=== PATIENT | female | born 2000 | race American Indian/Alaskan Native ===

== ENCOUNTER 2024-07-13 19:31 | Emergency (ER) | payer MEDICAID ==
[2024-07-13 20:23] LABS: BASOPHILS ABSOLUTE AUTO 0.07 10^3/uL (0.00-0.50); BASOPHILS PERCENT AUTO 0.9 % (0-1); EOSINOPHILS ABSOLUTE AUTO 0.07 10^3/uL (0.00-1.50); EOSINOPHILS PERCENT AUTO 0.9 % (0-6); HEMATOCRIT 35.2 % (37.0-47.0); HEMOGLOBIN 11.5 g/dL (12.0-16.0); IMMATURE GRAN ABSOLUTE AUTO 0.01 10^3/uL (0.00-0.49); IMMATURE GRAN PERCENT AUTO 0.1 % (0.0-4.9); LYMPHOCYTES ABSOLUTE AUTO 1.49 10^3/uL (0.60-5.00); LYMPHOCYTES PERCENT AUTO 19.6 % (24-44); MEAN CORPUSCULAR HEMOGLOBIN 24.6 pg (27.0-32.0); MEAN CORPUSCULAR HGB CONC 32.7 g/dL (32.0-36.0); MEAN CORPUSCULAR VOLUME 75.2 fL (83.0-97.0); MONOCYTES ABSOLUTE AUTO 0.58 10^3/uL (0.00-1.50); MONOCYTES PERCENT AUTO 7.6 % (0-10); NEUTROPHILS ABSOLUTE AUTO 5.37 x10^3/uL (1.80-8.00); NEUTROPHILS PERCENT AUTO 70.9 % (41-71); PLATELET COUNT,PLT 314 10^3/uL (150-400); RED BLOOD CELL COUNT 4.68 x10^6/uL (4.00-5.50); WHITE BLOOD CELL COUNT,WBC 7.6 10^3/uL (4.0-11.0)
[2024-07-13 20:45] LABS: ALANINE AMINOTRANSFERASE,ALT 28 U/L (12-78); ALBUMIN 3.6 g/dL (3.4-5.0); ALKALINE PHOSPHATASE 136 U/L (46-116); ASPARTATE AMNIOTRANSFERASE,AST 20 U/L (15-37); BILIRUBIN TOTAL 0.1 mg/dL (0.0-1.0); BLOOD UREA NITROGEN,BUN 19 mg/dL (7-18); CALCIUM 8.6 mg/dL (8.4-10.1); CARBON DIOXIDE,CO2 21 mmol/L (21-32); CHLORIDE,CL 105 mEq/L (98-106); CREATININE 1.1 mg/dL (0.6-1.0); GLUCOSE RANDOM 98 mg/dL (75-99); POTASSIUM,K 3.6 mEq/L (3.5-5.0); PROTEIN TOTAL,TP 7.2 g/dL (6.4-8.2); SODIUM,NA 141 mEq/L (136-145)
[2024-07-13 20:45] LABS: APPEARANCE,URINE CLEAR (CLEAR); BILIRUBIN,URINE NEGATIVE (NEGATIVE); COLOR,URINE YELLOW (YELLOW); GLUCOSE,URINE NEGATIVE (NEGATIVE); KETONES,URINE NEGATIVE (NEGATIVE); LEUKOCYTE ESTERASE,URINE NEGATIVE (NEGATIVE); NITRITE,URINE NEGATIVE (NEGATIVE); OCCULT BLOOD,URINE NEGATIVE (NEGATIVE); PROTEIN,URINE 30 mg/dL (NEGATIVE); UROBILINOGEN,URINE 0.2 EU/dL (0.2-1.0)
[2024-07-13 20:50] LABS: C-REACTIVE PROTEIN < 0.50 mg/dL (<=0.50); ESTIMATED GFR 73 mL/min (>=60)
[2024-07-13 20:51] LABS: AMPHETAMINES,URINE NEGATIVE (NEGATIVE); BARBITURATES,URINE NEGATIVE (NEGATIVE); BENZODIAZEPINE,URINE NEGATIVE (NEGATIVE); MDMA (ECSTASY), URINE NEGATIVE (NEGATIVE); METHADONE,URINE NEGATIVE (NEGATIVE); METHAMPHETAMINES,URINE NEGATIVE (NEGATIVE); OPIATES,URINE NEGATIVE (NEGATIVE); OXYCODONE,URINE NEGATIVE (NEGATIVE); PHENCYCLIDINE,URINE NEGATIVE (NEGATIVE); RBC,URINE NOT SEEN /HPF (0-5); TCA,URINE NEGATIVE (NEGATIVE); WBC,URINE NOT SEEN /HPF (0-5)
== END 2024-07-13 21:25 | disposition home or self-care (01) ==
LOC: CC.ED 19:31
DX: R56.9 Unspecified convulsions (principal); Z86.16 Personal history of COVID-19
CPT/HCPCS: 36415; 80053; 80305-QW; 81001; 81025; 85025; 86140; 99284

== ENCOUNTER 2024-07-13 22:31 | Emergency (ER) | payer MEDICAID ==
[2024-07-13] MEDS: Sodium Chloride 0.9% 1,000 ML IV ONE (23:04)
[2024-07-13] MEDS: Ondansetron 4 MG/2 ML SDV IVPUSH STA (23:05)
[2024-07-13] MEDS: Acetaminophen 500 MG Tab PO ONE (23:33)
[2024-07-14] MEDS: Ondansetron 4 MG/2 ML SDV IVPUSH STA (00:28)
[2024-07-14] MEDS: levETIRAcetam 500 MG/5 ML SDV IVPUSH ONE (00:32)
[2024-07-14] MEDS: Take Home: Ondansetron 4 MG Tab.DIS, 2 Tab Pack PO ONE (01:40)
== END 2024-07-14 01:45 | disposition home or self-care (01) ==
LOC: CC.ED 22:31
DX: R56.9 Unspecified convulsions (principal); Z79.899 Other long term (current) drug therapy; Z86.16 Personal history of COVID-19
CPT/HCPCS: 70450; 96361; 96374; 96375; 96376; 99284-25; A9270-GY; J1953; J2405; J7030